=== PATIENT | female | born 1980 | race American Indian/Alaskan Native ===

== ENCOUNTER 2017-09-08 10:31 | Emergency (ER) | payer OTHER ==
[2017-09-08 10:55] VITALS: BMI 21.7
[2017-09-08 11:00] VITALS: RESP 18
[2017-09-08 12:37] LABS: HCG,QUALITATIVE URINE NEGATIVE (NEGATIVE)
[2017-09-08 12:38] LABS: SQUAMOUS EPITHIAL 4 /hpf (0-5); URINE BILIRUBIN NEGATIVE (NEGATIVE); URINE BLOOD NEGATIVE (NEGATIVE); URINE CLARITY Hazy (Clear); URINE COLOR Yellow (YELLOW); URINE GLUCOSE (UA) NORMAL (Normal); URINE LEUKOCYTE ESTERASE NEG Leu/uL (Negative); URINE PROTEIN NEGATIVE (NEGATIVE); URINE UROBILINOGEN NORMAL mg/dL (0.2-1.0)
--- NOTE | 2017-09-08 12:38 | CT ---
PROCEDURE: CT HEAD WITHOUT CONTRAST. 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 TECHNIQUE: Axial computed tomography images were obtained through the head/brain without intravenous contrast. Radiation dose: Total exam DLP = 827.99 mGy-cm. This CT exam was performed using one or more of the following dose reduction techniques: Automated exposure control, adjustment of the mA and/or kV according to patient size, and/or use of iterative reconstruction technique. FINDINGS: HEMORRHAGE: No intracranial hemorrhage. BRAIN: There is prominent dilatation of the bilateral lateral, the 3rd and 4th ventricles compatible with normal pressure or communicating hydrocephalus. A right frontal shunt is identified placed by right frontal approach with tip terminating at the right frontal horn superiorly. There is no prior imaging to correlate current ventricular size with prior ventricular volumes. If prior brain imaging can be retrieved for comparison, then an addendum to this report can be provided. Nevertheless, no prominent transependymal edema pattern is appreciated. Good corticomedullary differentiation is seen throughout the delete brain and there is no suspicious extra-axial fluid collection identified. The posterior fossa contents ectasis of the 4th ventricle are unremarkable, including the brainstem. Exclusive of the 3rd and 4th ventricles in the midline brain anatomy is unremarkable. VENTRICLES: As above. CALVARIUM: Unremarkable. PARANASAL SINUSES: Unremarkable as visualized. No significant inflammatory changes. MASTOID AIR CELLS: Unremarkable as visualized. No inflammatory changes. OTHER FINDINGS: None. IMPRESSION: Prominent ventricular system with right frontal shunt, compatible with normal pressure/ communicating hydrocephalus. Examination otherwise unremarkable. If prior brain imaging is retrieved for comparison, then an addendum this report can be provided.
[2017-09-08 12:39] LABS: BASO % 0.4 % (0.0-2.0); EOS # 0.1 K/uL (0.0-0.7); EOS % 0.7 % (0.0-4.0); HEMOGLOBIN 12.4 g/dL (11.0-16.0); LYMPH # 1.5 K/uL (1.0-4.3); LYMPH % 20.7 % (20.0-40.0); MEAN CELL VOLUME 95.6 fL (81.0-99.0); MEAN CORPUSCULAR HEMOGLOBIN 31.6 pg (27.0-31.0); MEAN PLATELET VOLUME 8.5 fL (7.2-11.7); MONO # 0.4 K/uL (0.0-0.8); MONO % 6.2 % (0.0-10.0); NEUT # 5.1 K/uL (1.8-7.0); RBC 3.92 Mil/uL (3.80-5.20); RED CELL DISTRIBUTION WIDTH 14.5 % (11.5-14.5); WHITE BLOOD COUNT 7.1 K/uL (4.8-10.8)
[2017-09-08 12:50] LABS: ALB/GLOB RATIO 1.2 (1.0-2.1); ALBUMIN 4.1 g/dL (3.5-5.0); ALT/SGPT 13 U/L (9-52); AST/SGOT 21 U/L (14-36); BLOOD UREA NITROGEN 8 mg/dL (7-17); CALCIUM 8.1 mg/dl (8.6-10.4); GFR AFRICAN-AMERICAN > 60; GFR NON-AFRICAN AMERICAN > 60
--- NOTE | 2017-09-08 14:24 | C.PDOC ---
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 Patient states that she is feeling light-headed. Patient denies head injury, trauma, LOC, and other complaints. Time Seen by Provider: 09/08/17 11:34 Chief Complaint (Nursing): Headache History Per: Patient History/Exam Limitations: no limitations Onset/Duration Of Symptoms: Days Current Symptoms Are (Timing): Still Present Severity: Moderate Past Medical History Reviewed: Historical Data, Nursing Documentation, Vital Signs Vital Signs: Last Vital Signs Temp 97.4 F L 09/08/17 10:55 Pulse 72 09/08/17 10:55 Resp 18 09/08/17 10:55 BP 118/53 L 09/08/17 10:55 Pulse Ox 99 09/08/17 10:55 - Medical History PMH: No Chronic Diseases Other Surgeries: Hx of surgeries Family History: States: No Known Family Hx - Social History Hx Alcohol Use: No Hx Substance Use: No - Immunization History Hx Tetanus Toxoid Vaccination: No Hx Influenza Vaccination: Yes Hx Pneumococcal Vaccination: No Review Of Systems Except As Marked, All Systems Reviewed And Found Negative. Constitutional: Negative for: Fever, Chills Neurological: Positive for: Headache Physical Exam - Physical Exam Appears: Non-toxic, No Acute Distress Skin: Normal Color, Warm Head: Atraumatic, Normacephalic Eye(s): bilateral: Other (strabismus) Nose: Normal Oral Mucosa: Moist Neck: Supple Cardiovascular: Rhythm Regular Respiratory: Normal Breath Sounds, No Rales, No Rhonchi, No Wheezing Extremity: Normal ROM Neurological/Psych: Oriented x3, Normal Speech ED Course And Treatment - Laboratory Results Result Diagrams: 09/08/17 12:36 09/08/17 12:36 O2 Sat by Pulse Oximetry: 99 (RA) Pulse Ox Interpretation: Normal Progress Note: Labs,UA, and CT-Head ordered. Disposition - Disposition - PA / CULINARY ARTIST / Resident Statement MD/DO has reviewed & agrees with the documentation as recorded. - Scribe Statement The provider has reviewed the documentation as recorded by the Curtis Chacon Provider Attestation All medical record entries made by the Scribe were at my direction and personally dictated by me. I have reviewed the chart and agree that the record accurately reflects my personal performance of the history, physical exam, medical decision making, and the department course for this patient. I have also personally directed, reviewed, and agree with the discharge instructions and disposition.
--- NOTE | 2017-09-08 14:27 | C.PDOC ---
History Of Present Illness 37 y/o female, with hx of GYN shunt, presents to the ER complaining of a frontal headache which has been present for the past 1.5 weeks. Patient states that she is feeling light-headed. Patient denies head injury, trauma, LOC, and other complaints. Time Seen by Provider: 09/08/17 11:34 Chief Complaint (Nursing): Headache History Per: Patient History/Exam Limitations: no limitations Current Symptoms Are (Timing): Still Present Severity: Moderate Past Medical History Reviewed: Historical Data, Nursing Documentation, Vital Signs Vital Signs: Last Vital Signs Temp 98.0 F 09/08/17 14:52 Pulse 64 09/08/17 14:52 Resp 18 09/08/17 14:52 BP 107/67 09/08/17 14:52 Pulse Ox 99 09/08/17 18:25 - Medical History PMH: No Chronic Diseases Other Surgeries: Hx of surgeries Family History: States: No Known Family Hx - Social History Hx Alcohol Use: No Hx Substance Use: No - Immunization History Hx Tetanus Toxoid Vaccination: No Hx Influenza Vaccination: Yes Hx Pneumococcal Vaccination: No Review Of Systems Except As Marked, All Systems Reviewed And Found Negative. Constitutional: Negative for: Fever, Chills Neurological: Positive for: Headache Physical Exam - Physical Exam Appears: Non-toxic, No Acute Distress Skin: Normal Color, Warm Head: Atraumatic, Normacephalic Eye(s): bilateral: Other (strabismus) Nose: Normal Oral Mucosa: Moist Neck: Supple Chest: Symmetrical Cardiovascular: Rhythm Regular Respiratory: Normal Breath Sounds, No Rales, No Rhonchi, No Wheezing Extremity: Normal ROM Neurological/Psych: Oriented x3, Normal Speech ED Course And Treatment - Laboratory Results Result Diagrams: 09/08/17 12:36 09/08/17 12:36 O2 Sat by Pulse Oximetry: 99 (RA) Pulse Ox Interpretation: Normal - CT Scan/US CT-Head Other Rad Studies (CT/US): Read By Radiologist, Radiology Report Reviewed CT/US Interpretation: PROCEDURE: CT HEAD WITHOUT CONTRAST. HISTORY: front headache, h/o GYN shunt. COMPARISON: None available. TECHNIQUE: Axial computed tomography images were obtained through the head/brain without intravenous contrast. Radiation dose: Total exam DLP = 827.99 mGy-cm. This CT exam was performed using one or more of the following dose reduction techniques: Automated exposure control, adjustment of the mA and/or kV according to patient size, and/or use of iterative reconstruction technique. FINDINGS: HEMORRHAGE: No intracranial hemorrhage. BRAIN: There is prominent dilatation of the bilateral lateral, the 3rd and 4th ventricles compatible with normal pressure or communicating hydrocephalus. A right frontal shunt is identified placed by right frontal approach with tip terminating at the right frontal horn superiorly. There is no prior imaging to correlate current ventricular size with prior ventricular volumes. If prior brain imaging can be retrieved for comparison, then an addendum to this report can be provided. Nevertheless, no prominent transependymal edema pattern is appreciated. Good corticomedullary differentiation is seen throughout the delete brain and there is no suspicious extra-axial fluid collection identified. The posterior fossa contents ectasis of the 4th ventricle are unremarkable, including the brainstem. Exclusive of the 3rd and 4th ventricles in the midline brain anatomy is unremarkable. VENTRICLES: As above. CALVARIUM: Unremarkable. PARANASAL SINUSES: Unremarkable as visualized. No significant inflammatory changes. MASTOID AIR CELLS: Unremarkable as visualized. No inflammatory changes. OTHER FINDINGS: None. IMPRESSION: Prominent ventricular system with right frontal shunt, compatible with normal pressure/ communicating hydrocephalus. Examination otherwise unremarkable. If prior brain imaging is retrieved for comparison, then an addendum this report can be provided. Progress Note: Labs, UA, HCG, and CT-Head ordered. Disposition - Disposition Referrals: Octavio Henson MD [Staff Provider] - Disposition: HOME/ ROUTINE Disposition Time: 14:27 Condition: STABLE Additional Instructions: Follow up with PMD within 1-2 days. Return to ED if feel worse. Instructions: Headache, Adult Forms: [facility] ([place]), Work Excuse - Clinical Impression Clinical Impression: Headache - PA / IRON PILER / Resident Statement MD/DO has reviewed & agrees with the documentation as recorded. - Scribe Statement The provider has reviewed the documentation as recorded by the Curtis Chacon Provider Attestation All medical record entries made by the Scribe were at my direction and personally dictated by me. I have reviewed the chart and agree that the record accurately reflects my personal performance of the history, physical exam, medical decision making, and the department course for this patient. I have also personally directed, reviewed, and agree with the discharge instructions and disposition.
[2017-09-08 14:53] VITALS: BP 107/67; PULSE 64; TEMP 98
[2017-09-09 11:06] VITALS: O2SAT 99
== END 2017-09-08 14:56 | disposition home or self-care (01) ==
LOC: C.ER 10:31
DX: R51 Headache (principal)